=== PATIENT | male | born 1980 | race American Indian/Alaskan Native ===

== ENCOUNTER 2018-03-22 00:34 | Inpatient (IN) | payer OTHER ==
[2018-03-22] MEDS ORDERED: NACL 0.9% 1000 ML 1,000 ML IV ONE (01:19)
[2018-03-22] MEDS ORDERED: ZOFRAN ODT PO ONE (01:29)
[2018-03-22] MEDS ORDERED: ZOFRAN ODT ONE (01:30)
[2018-03-22 02:05] LABS: Basophils % (Auto) 0.3 % (0.0-1.8); Hemoglobin 14.6 gm/dl (11.8-15.2); Lymphocytes # (Auto) 2.1 K/mm3 (1.2-5.4); Mean Corpuscular HGB Conc 34 % (32-34); Mean Corpuscular Hemoglobin 31 pg (28-32); Mean Corpuscular Volume 92 fl (84-94); Monocytes # (Auto) 0.8 K/mm3 (0.0-0.8); Monocytes % (Auto) 5.9 % (0.0-7.3); Platelet Count 240 K/mm3 (140-440); Red Blood Count 4.69 M/mm3 (3.65-5.03); Red Cell Distribution Width 12.9 % (13.2-15.2)
[2018-03-22 02:28] LABS: Alanine Aminotransferase 15 units/L (7-56); Albumin 4.6 g/dL (3.9-5); BUN/Creatinine Ratio 16; Blood Urea Nitrogen 11 mg/dL (9-20); Calcium 9.6 mg/dL (8.4-10.2); Hemolysis Index 5; Lipase 18 units/L (13-60)
[2018-03-22] MEDS ORDERED: PROTONIX IV ONE (07:46)
--- NOTE | 2018-03-22 07:48 | Emergency Department Report ---
ED GI Bleed HPI - General Chief complaint: Abdominal Pain Stated complaint: CP Time Seen by Provider: 03/22/18 07:37 Source: patient, RN notes reviewed Mode of arrival: Ambulatory Limitations: No Limitations - History of Present Illness Initial comments: This is a 38-year-old gentleman who is not known to this provider previously, who does not currently have a primary care doctor, and reports surgical history for appendectomy. He reports a past medical history for pancreatitis. Patient reports that he was in his usual state of health a few days ago, and consumed some fried and fatty foods, and shortly thereafter developed epigastric pain. The pain did not radiate to the back, arms or neck. It was associated by nausea and vomiting. He reports coffee-ground emesis. He thinks that his first episode of emesis was the food that he ate, and then was subsequently coffee-ground emesis. Patient was given medication prior to my arrival, including Zofran, which he indicates improved his symptoms. He denies DVT, pulmonary embolus risk factors. He denies headache, neck pain, shortness of breath, lower abdominal pain, irritative/obstructive urinary symptoms. MD complaint: coffee ground emesis -: Gradual Location: epigastric Radiation: none Severity scale (0 -10): 8 Quality: cramping Consistency: intermittent Improves with: none Worsens with: none Associated Symptoms: abdominal pain, nausea, vomiting. denies: epistaxis, fever /chills, headaches, loss of appetite, malaise, easy bruising, rash, other bleeding, shortness of breath, syncope, weakness - Related Data Allergies Allergy/AdvReac Type Severity Reaction Status Date / Time No Known Allergies Allergy Verified 03/22/18 01:19 ED Review of Systems ROS: Stated complaint: CP Other details as noted in HPI Constitutional: denies: fever Eyes: denies: eye discharge ENT: denies: epistaxis Respiratory: denies: cough Cardiovascular: denies: syncope Gastrointestinal: abdominal pain, nausea, vomiting. denies: melena, hematochezia Genitourinary: denies: dysuria Musculoskeletal: denies: back pain Skin: denies: lesions Neurological: denies: weakness Psychiatric: anxiety ED Past Medical Hx - Past Medical History Previous Medical History?: Yes Additional medical history: pancreatis - Surgical History Hx Appendectomy: Yes Additional Surgical History: tonsil - Social History Smoking Status: Current Every Day Smoker Substance Use Type: Alcohol ED Physical Exam - General Limitations: No Limitations General appearance: alert, in no apparent distress - Head Head exam: Present: atraumatic, normocephalic - Eye Eye exam: Present: normal appearance, EOMI. Absent: nystagmus - ENT ENT exam: Present: normal exam, normal orophraynx, mucous membranes moist, normal external ear exam - Neck Neck exam: Present: normal inspection, full ROM. Absent: tenderness, meningismus - Respiratory Respiratory exam: Present: normal lung sounds bilaterally. Absent: respiratory distress - Cardiovascular Cardiovascular Exam: Present: regular rate, normal rhythm, normal heart sounds. Absent: bradycardia, tachycardia, irregular rhythm, systolic murmur, diastolic murmur, rubs, gallop - GI/Abdominal GI/Abdominal exam: Present: soft. Absent: distended, tenderness, guarding, rebound, rigid, pulsatile mass - Rectal Rectal exam: Present: deferred - Extremities Exam Extremities exam: Present: normal inspection, full ROM, normal capillary refill , other (2+ pulses noted in the bilateral upper, lower extremities. Compartments soft. No long bony tenderness. The pelvis is stable.). Absent: tenderness, pedal edema, joint swelling, calf tenderness - Back Exam Back exam: Present: normal inspection, full ROM. Absent: tenderness, CVA tenderness (R), paraspinal tenderness, vertebral tenderness - Neurological Exam Neurological exam: Present: alert, oriented X3, CN II-XII intact, normal gait, other (Extraocular movements intact. Tongue midline. No facial droop. Facial sensation intact to light touch in the V1, V2, V3 distribution bilaterally. 5 and 5 strength in 4 extremities.. Sensation is intact to light touch in 4 extremities.). Absent: motor sensory deficit - Psychiatric Psychiatric exam: Present: normal affect, normal mood - Skin Skin exam: Present: warm, dry, intact, normal color. Absent: rash ED Course Vital Signs 03/22/18 03/22/18 03/22/18 01:15 04:17 05:41 Temperature 99.5 F 98.2 F Pulse Rate 70 75 Respiratory 22 18 Rate Blood Pressure 163/101 158/100 Blood Pressure [Right] O2 Sat by Pulse 99 98 100 Oximetry 03/22/18 03/22/18 03/22/18 06:00 06:11 06:30 Temperature 98.5 F 99.1 F Pulse Rate 75 69 73 Respiratory 16 17 17 Rate Blood Pressure 149/88 154/102 Blood Pressure 149/88 154/102 [Right] O2 Sat by Pulse 100 98 98 Oximetry ED Medical Decision Making - Lab Data Result diagrams: 03/22/18 01:29 03/22/18 01:29 Vital Signs 03/22/18 03/22/18 03/22/18 01:15 04:17 05:41 Temperature 99.5 F 98.2 F Pulse Rate 70 75 Respiratory 22 18 Rate Blood Pressure 163/101 158/100 Blood Pressure [Right] O2 Sat by Pulse 99 98 100 Oximetry 03/22/18 03/22/18 03/22/18 06:00 06:11 06:30 Temperature 98.5 F 99.1 F Pulse Rate 75 69 73 Respiratory 16 17 17 Rate Blood Pressure 149/88 154/102 Blood Pressure 149/88 154/102 [Right] O2 Sat by Pulse 100 98 98 Oximetry Lab Results 03/22/18 03/22/18 Range/Units 01:29 01:29 WBC 13.4 H (4.5-11.0) K/mm3 RBC 4.69 (3.65-5.03) M/mm3 Hgb 14.6 (11.8-15.2) gm/dl Hct 43.0 (35.5-45.6) % MCV 92 (84-94) fl MCH 31 (28-32) pg MCHC 34 (32-34) % RDW 12.9 L (13.2-15.2) % Plt Count 240 (140-440) K/mm3 Lymph % (Auto) 16.0 (13.4-35.0) % Sanborn % (Auto) 5.9 (0.0-7.3) % Eos % (Auto) 0.0 (0.0-4.3) % Baso % (Auto) 0.3 (0.0-1.8) % Lymph # 2.1 (1.2-5.4) K/mm3 Sanborn # 0.8 (0.0-0.8) K/mm3 Eos # 0.0 (0.0-0.4) K/mm3 Baso # 0.0 (0.0-0.1) K/mm3 Seg Neutrophils % 77.8 H (40.0-70.0) % Seg Neutrophils # 10.4 H (1.8-7.7) K/mm3 Sodium 141 (137-145) mmol/L Potassium 3.4 L (3.6-5.0) mmol/L Chloride 98.9 (98-107) mmol/L Carbon Dioxide 27 (22-30) mmol/L Anion Gap 19 mmol/L BUN 11 (9-20) mg/dL Creatinine 0.7 L (0.8-1.5) mg/dL Estimated GFR > 60 ml/min BUN/Creatinine Ratio 16 % Glucose 147 H (75-100) mg/dL Calcium 9.6 (8.4-10.2) mg/dL Total Bilirubin 0.50 (0.1-1.2) mg/dL AST 15 (5-40) units/L ALT 15 (7-56) units/L Alkaline Phosphatase 72 (35-129) units/L Total Protein 7.7 (6.3-8.2) g/dL Albumin 4.6 (3.9-5) g/dL Albumin/Globulin Ratio 1.5 % Lipase 18 (13-60) units/L - EKG Data -: EKG Interpreted by Me EKG shows normal: sinus rhythm Rate: normal - EKG Data When compared to previous EKG there are: previous EKG unavailable 03/22/18 08:07 Sinus, 75 bpm, normal axis, normal intervals, high left ventricular voltage, motion artifact. Not a STEMI - Radiology Data Radiology results: image reviewed interpreted by me: X-ray of the chest is negative for acute disease - Medical Decision Making Differential diagnosis, including but not limited to: Pancreatitis, Hina- Ziegler tear, upper GI bleed, hiatal hernia, GERD, gastritis Assessment and plan: 38-year-old male with history of pancreatitis who recently consumed alcohol and fatty foods, with epigastric pain and coffee-ground emesis. Patient has a photograph of the emesis and it looks quite copious. He is hemodynamically stable, and denies bright red blood or black tarry stool. X- ray of the chest is unremarkable. Hemoglobin, hematocrit appropriate within normal limits at this time. I suspect a Hina-Ziegler tear. However, given volume of coffee ground emesis noted on photograph, patient will be admitted to the medical service for serial abdominal exams, IV fluids, IV proton pump inhibitor, and gastroenterology consultation. The vocational counselor air export operations agent, Dr. Neri has graciously agreed to consult on the patient. Hospital physician, Dr. Ziegler to admit. Critical care attestation.: If time is entered above; I have spent that time in minutes in the direct care of this critically ill patient, excluding procedure time. ED Disposition Clinical Impression: Coffee ground emesis Disposition: OP ADMIT IP TO THIS HOSP Is pt being admited?: Yes Condition: Good Referrals: PRIMARY CARE, [Primary Care Provider] - 3-5 Days
[2018-03-22] MEDS ORDERED: NACL 0.9% 50 ML ONE (07:55)
[2018-03-22 08:17] LABS: INR 0.99 (0.87-1.13)
--- NOTE | 2018-03-22 08:25 | XRay Report ---
CHEST ONE VIEW INDICATION: Chest pain, nausea, vomiting. COMPARISON: None similar at this institution. FINDINGS: Portable, single, frontal chest radiograph demonstrates normal cardiomediastinal silhouette. Clear lungs. Unremarkable bones. Extrinsic EKG leads. CONCLUSION: No acute disease in the chest. Thank you for the opportunity to participate in this patient's care.
--- NOTE | 2018-03-22 08:51 | Cat Scan Report ---
CT ABDOMEN AND PELVIS WITH CONTRAST INDICATION: Abdominal pain, nausea, vomiting. Patient states history of pancreatitis. COMPARISON: None similar. FINDINGS: Abdomen and pelvis CT performed following intravenous administration of 100 cc of Omnipaque 300. LUNG BASES: Moderate to severe nonspecific distal esophageal wall prominence/thickening, not excluded for gastroesophageal reflux and/or hiatal hernia, amongst others. ABDOMEN: Liver, spleen, gallbladder, pancreas, adrenals, nonaneurysmal abdominal aorta with slight atherosclerotic changes and IVC within normal limits. No ascites or size significant adenopathy. Nonopacified GI tract valuation limited, though grossly nonobstructive. Stomach decompressed with nonspecific exaggerated wall thickness. Multiple ascending colon diverticula incidentally noted. Mild left intrarenal collecting system, renal pelvis and proximal ureteral dilatation noted, though proximal ureter promptly tapers to a normal caliber anterior to the psoas muscle as on axial series 2, images 81-90. A 5 mm left interpolar calculus also noted, axial image 62. Tiny, subcentimeter bilateral renal cortical hypodensities. Otherwise unremarkable kidneys. No hydronephrosis on the right. PELVIS: Opacified right ureter is unremarkable. Left ureter though not opacified and difficult to accurately follow to the bladder base with a tiny 2-3 mm left hemipelvic calcification as on axial series 4, image 53 presumed to represent a phlebolith rather than a distal ureteral stone. Few other pelvic vascular calcifications also noted. Otherwise unremarkable urinary bladder, seminal vesicles, prostate and rectosigmoid. No free fluid or significant adenopathy. Approximately 1.5 cm fat containing right inguinal hernia proximally, axial image 158. Bilateral SI joint degenerative bridging osteophytes. Mild lower thoracic and upper lumbar spine degenerative spurring also seen. CONCLUSION: 1. Extensive distal esophageal thickening as also nonspecific exaggerated gastric wall thickness, as detailed above. Etiologies as esophagitis/gastroesophageal reflux/hiatal hernia and peptic ulcer disease, amongst others, may be correlated for clinically in an appropriate setting. 2. Approximately 5 mm left renal calculus with mild dilatation of the left renal collecting system, as detailed above. No obstructing ureteral calculus though convincingly identified, as described. 3. Few other findings as diverticulosis, as above. I phoned the above results to Dr. Higgins in the ER, 8:40 AM, 03/22/2018. Thank you for the opportunity to participate in this patient's care.
[2018-03-22] MEDS ORDERED: ZOFRAN IV PRN (09:12)
[2018-03-22] MEDS ORDERED: REGLAN IV PRN (09:12)
--- NOTE | 2018-03-22 09:18 | History and Physical Report ---
History of Present Illness Date of examination: 03/22/18 Chief complaint: Stomach pains History of present illness: Patient is 38 yo man with a history of alcoholic pancreatitis, GERD and alcohol abuse who presents to [facility] ED with severe acute onset constant nonradiating epigastric abdominal pains. He was in his usual state of health a few days ago, when he went out drinking alcohol and eating fried, fatty foods. He was drinking beer and mixed alcohol drinks. He lost count of how much alcohol he consumed. Then he started having severe constant nausea and vomiting associated with diffuse chest pains located over entire chest while vomiting. Then the vomitus turned black followed by severe epigastric abdominal pains so he decided to come to the ED this morning. He took a picture of the vomitus on his smartphone, which appear to be coffee ground emesis, more than a tablespoon. We did have a conversation regarding the knowledge of alcohol causing pancreatitis but he is still drinking alcohol. He minimizes his alcohol consumption. 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 PSH: Left kidney open surgery for blockage, tonsillectomy, appendectomy SH: no tobacco smoking, +ETOH abuse, +marijuana use FH: mother with hypertension, cousin of DM complication, unaware of any early CAD ROS: Constitutional: denies: fever ENT: denies: throat or neck pain Respiratory: denies: cough, shortness of breath Cardiovascular: + chest pain while vomiting Endocrine: denies unexplained weight loss or gain Gastrointestinal: + abdominal pain, nausea Genitourinary: denies: dysuria Rectal: denies no incontinence, no bleeding, no itching, no discharge Musculoskeletal: denies swelling, myaglia, muscle weakness Skin: denies: rash Neurological: denies: headache Hematological/Lymphatic: denies: easy bleeding or easy bruising Allergic/Immunologic: no urticaria, no allergic rhinitis, no anaphylaxis Psych: denies sadness or hopelessness, SI/HI Medications and Allergies Allergies Allergy/AdvReac Type Severity Reaction Status Date / Time No Known Allergies Allergy Verified 03/22/18 01:19 Active Meds: Active Medications Hydromorphone HCl (Dilaudid) 1 mg IV Q4H PRN PRN Reason: Pain , Severe (7-10) Potassium Chloride (Kcl 10meq/100ml) 10 meq in 100 mls @ 100 mls/hr IV Q1H KELLEY Stop: 03/22/18 10:59 Ceftriaxone Sodium (Rocephin/Ns 1 Gm/50 Ml) 1 gm in 50 mls @ 100 mls/hr IV Q24HR KELLEY; Protocol Sodium Chloride (Nacl 0.45% 1000 Ml) 1,000 mls @ 100 mls/hr IV DIRECT KELLEY Metoclopramide HCl (Reglan) 10 mg IV Q8H PRN PRN Reason: Nausea And Vomiting Ondansetron HCl (Zofran) 4 mg IV Q4H PRN PRN Reason: N/V unrelieved by Reglan Pantoprazole Sodium (Protonix) 40 mg IV BID KELLEY Exam - Physical Exam Narrative exam: GEN: WDWN, ill appearing with writhing in pain, NAD, Awake, Alert, Orientated x 3 HEENT: NCAT, EOMI, PERRL, OP Clear NECK: supple, no adenopathy, no thyromegaly, no JVD CVS/HEART: RRR, normal S1S2, pulses present bilaterally CHEST/LUNGS: CTA B, Symmetrical chest expansion, good air entry bilaterally GI/Abdomen: soft, nondistended, epigastric abd pains, good bowel sounds, no guarding or rebound /Bladder: no suprapubic tenderness, no CVA or paraspinal tenderness EXT/Skin: no c/c/e, no obvious rash MSK: FROM x 4 Neuro: CN 2-12 grossly intact, no new focal deficits Psych: calm - Constitutional Vitals: Temp Pulse Resp BP Pulse Ox 99.1 F 73 17 154/102 98 03/22/18 06:11 03/22/18 06:30 03/22/18 06:30 03/22/18 06:30 03/22/18 06:30 Results - Labs CBC & Chem 7: 03/22/18 01:29 03/22/18 01:29 Labs: Abnormal lab results 03/22/18 03/22/18 Range/Units 01:29 01:29 WBC 13.4 H (4.5-11.0) K/mm3 RDW 12.9 L (13.2-15.2) % Seg Neutrophils % 77.8 H (40.0-70.0) % Seg Neutrophils # 10.4 H (1.8-7.7) K/mm3 Potassium 3.4 L (3.6-5.0) mmol/L Creatinine 0.7 L (0.8-1.5) mg/dL Glucose 147 H (75-100) mg/dL Assessment and Plan Patient is 38 yo man with a history of alcoholic pancreatitis, GERD and alcohol abuse who presents to [facility] ED with severe acute onset constant nonradiating epigastric abdominal pains. He was in his usual state of health a few days ago, when he went out drinking alcohol and eating fried, fatty foods. He was drinking beer and mixed alcohol drinks. He lost count of how much alcohol he consumed. Then he started having severe constant nausea and vomiting associated with diffuse chest pains located over entire chest while vomiting. Then the vomitus turned black followed by severe epigastric abdominal pains so he decided to come to the ED this morning. He took a picture of the vomitus on his smartphone, which appear to be coffee ground emesis, more than a tablespoon. We did have a conversation regarding his admission that alcohol caused pancreatitis in the past but he is still drinking alcohol. He minimizes his alcohol consumption. * CT abd/pelvis with IV contrast CONCLUSION: 1. Extensive distal esophageal thickening as also nonspecific exaggerated gastric wall thickness, as detailed above. Etiologies as esophagitis/gastroesophageal reflux/hiatal hernia and peptic ulcer disease, amongst others, may be correlated for clinically in an appropriate setting. 2. Approximately 5 mm left renal calculus with mild dilatation of the left renal collecting system, as detailed above. No obstructing ureteral calculus though convincingly identified, as described. 3. Few other findings as diverticulosis, as above. I phoned the above results to Dr. Higgins in the ER, 8:40 AM, 03/22/2018. * pCXR reported as unremarkable * EKG SR 75, early repolarization -SIRS due pancreatitis with wbc 13.4, and RR 22: treat with empiric antibiotics for suspected Hina Ziegler tear, ordered blood culture -Acute UGIB with normal H/H (early GIB) so far: keep NPO, treat with iv protonix , repeat H/H, GI already consulted per ED physician, whom I spoke with -History of alcohol pancreatitis: keep NPO, treat with IVF, IV narcotics, -Accelerated hypertension: treat with iv hydralazine prn -GERD: treat with ppi -Alcohol abuse: counseling and education done, treat with iv thiamine, CIWA protocol -Chest pains, atypical, most likely GERD related: check Troponin, treat with PPI -Left renal Incidential calculus: consulted Urology -DVT prophylaxis: scd only due to GIB bleed CCT 37 minutes
[2018-03-22] MEDS ORDERED: HALDOL IV PRN (09:42)
[2018-03-22] MEDS ORDERED: ATIVAN IV PRN ×3 (09:42)
[2018-03-22] MEDS ORDERED: APRESOLINE IV PRN (09:44)
[2018-03-22] MEDS: PROTONIX IV SCH ×2 (09:47→22:33)
--- NOTE | 2018-03-22 10:17 | Gastroenterology Consultation ---
<BARBARAJERRYBLADE Cehn - Last Filed: 03/22/18 10:48> History of Present Illness - Reason for Consult Consult date: 03/22/18 coffee-ground emesis Requesting physician: SHIV GRIGGS - History of Present Illness Patient is a 38 y/o male with PMH of alcoholic pancreatitis on whom GI has been consulted to evaluate and treat coffee-ground emesis. This morning, patient was resting on stretcher w/o acute distress. He reports drinking a large amount of alcohol and eating fatty foods Tuesday night after work then woke up yesterday morning with epigastric pain and associated N/V. He states his emesis was food colored with the first few episodes of vomiting and then it turned into a black color mixed with a small amount of bright red blood for subsequent episodes. Last episode of vomiting was early this am between 0100 and 0300. States he also had diffuse CP described as a "burning" while vomiting that has since resolved. No melena or hematochezia. Last BM 2 days ago with brown stool per pt. Denies fever, SOB, dizziness, dysphagia, odynophagia, diarrhea, or constipation. No NSAID use. No hx of liver disease, GI bleeding or PUD. No previous EGD. Past History Past Medical History: GERD, hypertension (controlled with diet), other (h/o alcoholic pancreatitis) Past Surgical History: appendectomy, tonsillectomy, Other (kidney surgery) Social history: other (+alcohol and marijuana use). denies: smoking Family history: diabetes, hypertension Medications and Allergies Allergies Allergy/AdvReac Type Severity Reaction Status Date / Time No Known Allergies Allergy Verified 03/22/18 01:19 Active Meds: Active Medications Haloperidol Lactate (Haldol) 5 mg IV Q1H PRN PRN Reason: Unrespon. to mult. doses BZD's Hydralazine HCl (Apresoline) 10 mg IV Q4HR PRN PRN Reason: Blood Pressure Hydromorphone HCl (Dilaudid) 1 mg IV Q4H PRN PRN Reason: Pain , Severe (7-10) Potassium Chloride (Kcl 10meq/100ml) 10 meq in 100 mls @ 100 mls/hr IV Q1H KELLEY Stop: 03/22/18 10:59 Ceftriaxone Sodium (Rocephin/Ns 1 Gm/50 Ml) 1 gm in 50 mls @ 100 mls/hr IV Q24HR KELLEY; Protocol Sodium Chloride (Nacl 0.45% 1000 Ml) 1,000 mls @ 100 mls/hr IV DIRECT KELLEY Thiamine HCl 100 mg/ Sodium (Chloride) 51 mls @ 100 mls/hr IV QDAY KELLEY Lorazepam (Ativan) 2 mg IV Q1H PRN PRN Reason: CIWA-Ar 8-15 Lorazepam (Ativan) 4 mg IV Q1H PRN PRN Reason: CIWA-Ar 16-25 Lorazepam (Ativan) 4 mg IV Q15MIN PRN PRN Reason: CIWA-Ar >25 Metoclopramide HCl (Reglan) 10 mg IV Q8H PRN PRN Reason: Nausea And Vomiting Ondansetron HCl (Zofran) 4 mg IV Q4H PRN PRN Reason: N/V unrelieved by Reglan Pantoprazole Sodium (Protonix) 40 mg IV BID KELLEY Last Admin: 03/22/18 09:47 Dose: Not Given Review of Systems - Review of Systems All systems: negative Gastrointestinal: abdominal pain (epigastric), nausea, vomiting, coffee ground emesis Exam - Constitutional Vital Signs: Temp Pulse Resp BP Pulse Ox 99.1 F 78 11 L 148/95 99 03/22/18 06:11 03/22/18 08:00 03/22/18 08:00 03/22/18 08:00 03/22/18 08:00 General appearance: no acute distress - EENT Eyes: PERRL, EOM intact ENT: hearing intact - Respiratory Respiratory: bilateral: CTA - Cardiovascular Rhythm: regular Heart Sounds: Present: S1 & S2 - Gastrointestinal General gastrointestinal: Present: soft, tender (slight generalized TTP ), non- distended, normal bowel sounds - Neurologic Neurological: alert and oriented x3 - Labs CBC & Chem 7: 03/22/18 01:29 03/22/18 01:29 Lab Results: Laboratory Results - last 24 hr 03/22/18 03/22/18 03/22/18 01:29 01:29 01:29 WBC 13.4 H RBC 4.69 Hgb 14.6 Hct 43.0 MCV 92 MCH 31 MCHC 34 RDW 12.9 L Plt Count 240 Lymph % (Auto) 16.0 [place] % (Auto) 5.9 Eos % (Auto) 0.0 Baso % (Auto) 0.3 Lymph # 2.1 [place] # 0.8 Eos # 0.0 Baso # 0.0 Seg Neutrophils % 77.8 H Seg Neutrophils # 10.4 H PT INR Sodium 141 Potassium 3.4 L Chloride 98.9 Carbon Dioxide 27 Anion Gap 19 BUN 11 Creatinine 0.7 L Estimated GFR > 60 BUN/Creatinine Ratio 16 Glucose 147 H Calcium 9.6 Magnesium 2.00 Total Bilirubin 0.50 AST 15 ALT 15 Alkaline Phosphatase 72 Troponin T Total Protein 7.7 Albumin 4.6 Albumin/Globulin Ratio 1.5 Lipase 18 Blood Type Antibody Screen 03/22/18 03/22/18 03/22/18 07:50 07:57 07:57 WBC RBC Hgb Hct MCV MCH MCHC RDW Plt Count Lymph % (Auto) [place] % (Auto) Eos % (Auto) Baso % (Auto) Lymph # [place] # Eos # Baso # Seg Neutrophils % Seg Neutrophils # PT 13.6 INR 0.99 Sodium Potassium Chloride Carbon Dioxide Anion Gap BUN Creatinine Estimated GFR BUN/Creatinine Ratio Glucose Calcium Magnesium Total Bilirubin AST ALT Alkaline Phosphatase Troponin T < 0.010 Total Protein Albumin Albumin/Globulin Ratio Lipase Blood Type O NEGATIVE Antibody Screen Negative Assessment and Plan 1.UGIB 2.coffee-ground emesis -INR 0.99 -LFTs and lipase WNL -chest x-ray negative -abd CT showed extensive distal esophageal thickening, nonspecific gastric wall thickening, and kidney stone -H/H 14.6/43.0-WNL -continue to monitor H/H and transfuse as needed -hold blood thinning medications -Patient reports multiple episodes of vomiting yesterday with emesis initially being food colored that became black in mixed with scant amount of bright red blood with following episodes -currently HD stable -etiology-most likely 2/2 M-W tear vs other -will schedule for an EGD today for further evaluation -continue PPI and supportive care -will follow 3.alcohol abuse -cessation discussed and encouraged with patient -monitor for withdrawal <DENISE WEINSTEIN - Last Filed: 03/22/18 14:27> Medications and Allergies Active Meds: Active Medications Haloperidol Lactate (Haldol) 5 mg IV Q1H PRN PRN Reason: Unrespon. to mult. doses BZD's Hydralazine HCl (Apresoline) 10 mg IV Q4HR PRN PRN Reason: Blood Pressure Hydromorphone HCl (Dilaudid) 1 mg IV Q4H PRN PRN Reason: Pain , Severe (7-10) Last Admin: 03/22/18 10:35 Dose: 1 mg Ceftriaxone Sodium (Rocephin/Ns 1 Gm/50 Ml) 1 gm in 50 mls @ 100 mls/hr IV Q24HR KELLEY; Protocol Last Admin: 03/22/18 10:45 Dose: 100 mls/hr Sodium Chloride (Nacl 0.45% 1000 Ml) 1,000 mls @ 100 mls/hr IV DIRECT KELLEY Last Admin: 03/22/18 10:28 Dose: 100 mls/hr Thiamine HCl 100 mg/ Sodium (Chloride) 51 mls @ 100 mls/hr IV QDAY KELLEY Sodium Chloride (Nacl 0.9% 1000 Ml) 1,000 mls @ 50 mls/hr IV DIRECT KELLEY Last Admin: 03/22/18 13:25 Dose: 50 mls/hr Lorazepam (Ativan) 2 mg IV Q1H PRN PRN Reason: CIWA-Ar 8-15 Lorazepam (Ativan) 4 mg IV Q1H PRN PRN Reason: CIWA-Ar 16-25 Lorazepam (Ativan) 4 mg IV Q15MIN PRN PRN Reason: CIWA-Ar >25 Metoclopramide HCl (Reglan) 10 mg IV Q8H PRN PRN Reason: Nausea And Vomiting Last Admin: 03/22/18 10:27 Dose: 10 mg Ondansetron HCl (Zofran) 4 mg IV Q4H PRN PRN Reason: N/V unrelieved by Reglan Pantoprazole Sodium (Protonix) 40 mg IV BID [facility] Last Admin: 03/22/18 09:47 Dose: Not Given Exam - Constitutional Vital Signs: Temp Pulse Resp BP Pulse Ox 98.6 F 72 11 L 128/80 99 03/22/18 13:04 03/22/18 13:04 03/22/18 13:04 03/22/18 13:04 03/22/18 13:04 - Labs CBC & Chem 7: 03/22/18 01:29 03/22/18 01:29 Lab Results: Laboratory Results - last 24 hr 03/22/18 03/22/18 03/22/18 01:29 01:29 01:29 WBC 13.4 H RBC 4.69 Hgb 14.6 Hct 43.0 MCV 92 MCH 31 MCHC 34 RDW 12.9 L Plt Count 240 Lymph % (Auto) 16.0 [place] % (Auto) 5.9 Eos % (Auto) 0.0 Baso % (Auto) 0.3 Lymph # 2.1 [place] # 0.8 Eos # 0.0 Baso # 0.0 Seg Neutrophils % 77.8 H Seg Neutrophils # 10.4 H PT INR Sodium 141 Potassium 3.4 L Chloride 98.9 Carbon Dioxide 27 Anion Gap 19 BUN 11 Creatinine 0.7 L Estimated GFR > 60 BUN/Creatinine Ratio 16 Glucose 147 H Calcium 9.6 Magnesium 2.00 Total Bilirubin 0.50 AST 15 ALT 15 Alkaline Phosphatase 72 Troponin T Total Protein 7.7 Albumin 4.6 Albumin/Globulin Ratio 1.5 Lipase 18 Urine Color Urine Turbidity Urine pH Ur Specific [place] Urine Protein Urine Glucose (UA) Urine Ketones Urine Blood Urine Nitrite Urine Bilirubin Urine Urobilinogen Ur Leukocyte Esterase Urine WBC (Auto) Urine RBC (Auto) Urine Mucus Blood Type Antibody Screen 03/22/18 03/22/18 03/22/18 07:50 07:57 07:57 WBC RBC Hgb Hct MCV MCH MCHC RDW Plt Count Lymph % (Auto) [place] % (Auto) Eos % (Auto) Baso % (Auto) Lymph # [place] # Eos # Baso # Seg Neutrophils % Seg Neutrophils # PT 13.6 INR 0.99 Sodium Potassium Chloride Carbon Dioxide Anion Gap BUN Creatinine Estimated GFR BUN/Creatinine Ratio Glucose Calcium Magnesium Total Bilirubin AST ALT Alkaline Phosphatase Troponin T < 0.010 Total Protein Albumin Albumin/Globulin Ratio Lipase Urine Color Urine Turbidity Urine pH Ur Specific [place] Urine Protein Urine Glucose (UA) Urine Ketones Urine Blood Urine Nitrite Urine Bilirubin Urine Urobilinogen Ur Leukocyte Esterase Urine WBC (Auto) Urine RBC (Auto) Urine Mucus Blood Type O NEGATIVE Antibody Screen Negative 03/22/18 03/22/18 10:30 11:56 WBC RBC Hgb Hct MCV MCH MCHC RDW Plt Count Lymph % (Auto) [place] % (Auto) Eos % (Auto) Baso % (Auto) Lymph # [place] # Eos # Baso # Seg Neutrophils % Seg Neutrophils # PT INR Sodium Potassium Chloride Carbon Dioxide Anion Gap BUN Creatinine Estimated GFR BUN/Creatinine Ratio Glucose Calcium Magnesium Total Bilirubin AST ALT Alkaline Phosphatase Troponin T < 0.010 Total Protein Albumin Albumin/Globulin Ratio Lipase Urine Color Yellow Urine Turbidity Clear Urine pH 6.0 Ur Specific [place] > 1.050 H Urine Protein <15 mg/dl Urine Glucose (UA) Neg Urine Ketones 20 Urine Blood Neg Urine Nitrite Neg Urine Bilirubin Neg Urine Urobilinogen 2.0 Ur Leukocyte Esterase Neg Urine WBC (Auto) 2.0 Urine RBC (Auto) 1.0 Urine Mucus Few Blood Type Antibody Screen Assessment and Plan Pt seen and examined. Agree with note above. will plan for EGD today. Further recommendations to follow.
[2018-03-22] MEDS: NACL 0.45% 1000 ML 1,000 ML IV SCH (10:28)
[2018-03-22] MEDS: DILAUDID IV PRN ×3 (10:35→22:33)
[2018-03-22] MEDS: ROCEPHIN/NS 1 GM/50 ML 1 GM/50 ML BAG IV SCH (10:45)
[2018-03-22 11:52] LABS: Bilirubin,Urine NEG (Negative); Blood,Urine NEG (Negative); Color,Urine Yellow (Yellow); Mucus,Urine FEW /HPF; Protein,Urine <15 mg/dL mg/dL (Negative)
[2018-03-22] MEDS: KCL 10MEQ/100ML 10 MEQ/100 ML BAG IV SCH ×2 (12:12→15:23)
--- NOTE | 2018-03-22 13:54 | Anesthesia Day of Surgery ---
Anesthesia Day of Surgery - Day of Surgery Patient Examined: Yes Patient H&P Reviewed: Yes Patient is NPO: Yes
--- NOTE | 2018-03-22 13:55 | Anesthesia Consultation ---
Anesthesia Consult and Med Hx Date of service: 03/22/18 - Airway Anesthetic Teeth Evaluation: Good ROM Head & Neck: Adequate Mental/Hyoid Distance: Adequate Mallampati Class: Class I Intubation Access Assessment: Good - Pulmonary Exam CTA: Yes - Cardiac Exam Cardiac Exam: RRR - Pre-Operative Health Status ASA Pre-Surgery Classification: ASA2 Proposed Anesthetic Plan: MAC (NPO, Hemodynamically stable for procedure)
[2018-03-22] MEDS ORDERED: NACL 0.9% 1000 ML 1,000 ML IV SCH (14:00)
--- NOTE | 2018-03-22 14:36 | Operative Report ---
Operative Report Operative Report: Esophagogastroduodenoscopy Procedure Note Date of procedure: 03/22/2018 Endoscopist: Robert Neri Pre-op diagnosis: UGI bleed Post-op diagnosis: Severe (LA Grade IV esophagitis), small jazmine arline tear, gastritis Anesthesia: MAC Complications: No immediate complications Estimated blood loss: minimal Procedure: After consent was obtained, the patient was placed in the left lateral decubitus position. The fujinon endoscope was inserted into the patient 's mouth under direct vision, and advanced into the 2nd portion of the duodenum without difficulty. The patient tolerated the procedure well. The views of the mucosa were good. Patient's vital signs were monitored continuously throughout the procedure. Findings: There was severe (LA Grade IV) esophagitis in the mid-lower third of the esophagus. There was a small possible jazmine arline tear at the GE junction without high risk bleeding stigmata. There was a moderate sized hiatal hernia. There was severe localized erythematous gastric mucosa in the proximal body of the stomach (likely from multiple retching episodes based on location of erythema). Otherwise, the stomach appeared normal. The duodenum appeared normal. Impression: 1. Severe esophagitis 2. Small jazmine arline tear without high risk bleeding stigmata 3. Localized gastritis , likely from retching episodes. Recommendations: -cont PPI BID (po) dosing -alcohol cessation -avoid NSAID's -repeat EGD in 2-3 months as outpatient to assess for esophagitis healing Will sign off, please call as needed or with questions. Follow-up in GI clinic in 1 month.
--- NOTE | 2018-03-22 14:46 | Progress Note ---
Assessment and Plan dictated no acute gu issues rec f/u as out pt Subjective Date of service: 03/22/18 Principal diagnosis: renal stones Objective - Constitutional Vitals: Vital Signs - 12hr 03/22/18 03/22/18 03/22/18 04:17 05:41 06:00 Temperature 98.2 F 98.5 F Pulse Rate 75 75 Respiratory 18 16 Rate Blood Pressure 158/100 149/88 Blood Pressure 149/88 [Right] O2 Sat by Pulse 98 100 100 Oximetry 03/22/18 03/22/18 03/22/18 06:11 06:30 07:00 Temperature 99.1 F Pulse Rate 69 73 83 Respiratory 17 17 18 Rate Blood Pressure 154/102 139/80 Blood Pressure 154/102 [Right] O2 Sat by Pulse 98 98 99 Oximetry 03/22/18 03/22/18 03/22/18 07:30 08:00 09:30 Temperature Pulse Rate 78 78 62 Respiratory 19 11 L 8 L Rate Blood Pressure 111/79 148/95 148/95 Blood Pressure [Right] O2 Sat by Pulse 98 99 100 Oximetry 03/22/18 03/22/18 03/22/18 09:40 09:50 10:18 Temperature Pulse Rate 75 85 82 Respiratory 14 13 Rate Blood Pressure 148/95 148/95 147/92 Blood Pressure [Right] O2 Sat by Pulse 99 92 100 Oximetry 03/22/18 03/22/18 03/22/18 11:54 12:00 12:58 Temperature 97.8 F 98.4 F 98.6 F Pulse Rate 63 72 72 Respiratory 20 16 11 L Rate Blood Pressure 118/78 128/80 Blood Pressure 142/78 [Right] O2 Sat by Pulse 96 100 99 Oximetry 03/22/18 03/22/18 13:04 14:26 Temperature 98.6 F 98.7 F Pulse Rate 72 83 Respiratory 11 L 14 Rate Blood Pressure 128/80 139/99 Blood Pressure [Right] O2 Sat by Pulse 99 99 Oximetry General appearance: Present: no acute distress - Neck Neck: supple - Respiratory Respiratory effort: normal - Gastrointestinal General gastrointestinal: Present: non-tender Rectal Exam: normal rectal tone - Genitourinary Male genitourinary: normal - Labs CBC & Chem 7: 03/22/18 01:29 03/22/18 01:29 Labs: Abnormal lab results 03/22/18 03/22/1818 Range/Units 01:29 01:29 10:30 WBC 13.4 H (4.5-11.0) K/mm3 RDW 12.9 L (13.2-15.2) % Seg Neutrophils % 77.8 H (40.0-70.0) % Seg Neutrophils # 10.4 H (1.8-7.7) K/mm3 Potassium 3.4 L (3.6-5.0) mmol/L Creatinine 0.7 L (0.8-1.5) mg/dL Glucose 147 H (75-100) mg/dL Ur Specific [place] > 1.050 H (1.003-1.030)
[2018-03-22] MEDS ORDERED: DIPRIVAN 10 MG/ML IV ONE (15:05)
[2018-03-22] MEDS: VITAMIN B-1 100 MG in NACL 0.9% 50 ML IV SCH (15:23)
[2018-03-22 15:44] LABS: Hematocrit 39.6 % (35.5-45.6); Hemoglobin 13.4 gm/dl (11.8-15.2)
--- NOTE | 2018-03-22 19:07 | Consultation ---
HISTORY OF PRESENT ILLNESS: The patient is a gentleman, who presented with renal stones, history of alcohol use, esophageal thickening, 5 mm left nonobstructed stone, mild dilatation. He now presents for urological consultation. PAST MEDICAL HISTORY: Alcoholism, pancreatitis, sounds like he had a left UPJ repair. FAMILY HISTORY: Noncontributory. PAST MEDICAL HISTORY: Hypertension, alcoholism, pancreatitis. REVIEW OF SYSTEMS: No significant flank pain, no gross hematuria, gets erections. PHYSICAL EXAMINATION: GENERAL: He is awake, alert. He is in no distress. He just had an endoscopy. ABDOMEN: Soft, nondistended. GENITALIA: Testes descended bilaterally. There is a small weakness in the right area of the inguinal canal. No tenderness. Digital rectal exam smooth, tender, non-nodular. IMPRESSION: Likely chronic dilatation, left renal collecting system. No acute obstruction. We will get a nuclear renal scan to be sure that it drains well and nonobstructing left renal stone followed up as outpatient. JOB# [id number] BRENDA/DAGOBERTO
[2018-03-23 05:48] LABS: Hematocrit 37.7 % (35.5-45.6); Hemoglobin 13.1 gm/dl (11.8-15.2); Mean Corpuscular HGB Conc 35 % (32-34); Mean Corpuscular Hemoglobin 32 pg (28-32); Mean Corpuscular Volume 91 fl (84-94); Platelet Count 210 K/mm3 (140-440); Red Blood Count 4.15 M/mm3 (3.65-5.03); Red Cell Distribution Width 12.7 % (13.2-15.2)
[2018-03-23 06:20] LABS: Alanine Aminotransferase 15 units/L (7-56); BUN/Creatinine Ratio 11; Blood Urea Nitrogen 8 mg/dL (9-20); Calcium 8.9 mg/dL (8.4-10.2); Hemolysis Index 54
[2018-03-23] MEDS: NACL 0.45% 1000 ML 1,000 ML IV SCH (08:13)
[2018-03-23] MEDS ORDERED: LASIX ONE (11:12)
[2018-03-23] MEDS ORDERED: LASIX IV ONE (11:30)
[2018-03-23] MEDS: VITAMIN B-1 100 MG in NACL 0.9% 50 ML IV SCH (13:47)
[2018-03-23] MEDS: PROTONIX IV SCH (13:52)
--- NOTE | 2018-03-23 14:27 | Progress Note ---
Assessment and Plan Assessment and plan: Patient is 38 yo man with a history of alcoholic pancreatitis, GERD and alcohol abuse who presents to [facility] ED with severe acute onset constant nonradiating epigastric abdominal pains. * CT abd/pelvis with IV contrast CONCLUSION: 1. Extensive distal esophageal thickening as also nonspecific exaggerated gastric wall thickness, as detailed above. Etiologies as esophagitis/gastroesophageal reflux/hiatal hernia and peptic ulcer disease, amongst others, may be correlated for clinically in an appropriate setting. 2. Approximately 5 mm left renal calculus with mild dilatation of the left renal collecting system, as detailed above. No obstructing ureteral calculus though convincingly identified, as described. 3. Few other findings as diverticulosis, as above. I phoned the above results to Dr. Higgins in the ER, 8:40 AM, 03/22/2018. * pCXR reported as unremarkable * EKG SR 75, early repolarization -SIRS due pancreatitis with wbc 13.4, and RR 22: treat with empiric antibiotics for suspected Jazmine Ziegler tear, ordered blood culture -Acute UGIB with normal H/H (early GIB) so far: keep NPO, treat with iv protonix , repeat H/H, GI already consulted per ED physician, whom I spoke with -History of alcohol pancreatitis: keep NPO, treat with IVF, IV narcotics, -Accelerated hypertension: treat with iv hydralazine prn -GERD: treat with ppi -Alcohol abuse: counseling and education done, treat with iv thiamine, CIWA protocol -Chest pains, atypical, most likely GERD related: check Troponin, treat with PPI -Left renal Incidential calculus: consulted Urology -DVT prophylaxis: scd only due to GIB bleed EGD 03/22/18 Impression: 1. Severe esophagitis 2. Small jazmine arline tear without high risk bleeding stigmata 3. Localized gastritis , likely from retching episodes. Recommendations: -cont PPI BID (po) dosing -alcohol cessation -avoid NSAID's -repeat EGD in 2-3 months as outpatient to assess for esophagitis healing Will sign off, please call as needed or with questions. Follow-up in GI clinic in 1 month. NM renal scan with lasix per Urology is pending. History Interval history: Patient was seen and examined. Follow-up on current diagnosis of abd pains. Overnight uneventful. Patient denies any chest pain, shortness breath, nausea/ vomiting or severe headaches. Imaging, nursing note, chart, labs and old chart reviewed. Discussed with patient. Hospitalist Physical - Physical exam Narrative exam: GEN: WDWN, NAD, Awake, Alert, Orientated x 3 HEENT: NCAT, EOMI, PERRL, OP Clear NECK: supple, no adenopathy, no thyromegaly, no JVD CVS/HEART: RRR, normal S1S2, pulses present bilaterally CHEST/LUNGS: CTA B, Symmetrical chest expansion, good air entry bilaterally GI/Abdomen: soft, nondistended, epigastric abd pains, good bowel sounds, no guarding or rebound /Bladder: no suprapubic tenderness, no CVA or paraspinal tenderness EXT/Skin: no c/c/e, no obvious rash MSK: FROM x 4 Neuro: CN 2-12 grossly intact, no new focal deficits Psych: calm - Constitutional Vitals: Temp Pulse Resp BP Pulse Ox 98.1 F 57 L 22 142/91 99 03/23/18 12:01 03/23/18 05:38 03/23/18 12:01 03/23/18 12:01 03/23/18 05:38 General appearance: Present: no acute distress Results - Labs CBC & Chem 7: 03/23/18 04:59 03/23/18 04:59 Labs: Laboratory Last Values WBC 9.2 K/mm3 (4.5-11.0) 03/23/18 04:59 RBC 4.15 M/mm3 (3.65-5.03) 03/23/18 04:59 Hgb 13.1 gm/dl (11.8-15.2) 03/23/18 04:59 Hct 37.7 % (35.5-45.6) 03/23/18 04:59 MCV 91 fl (84-94) 03/23/18 04:59 MCH 32 pg (28-32) 03/23/18 04:59 MCHC 35 % (32-34) H 03/23/18 04:59 RDW 12.7 % (13.2-15.2) L 03/23/18 04:59 Plt Count 210 K/mm3 (140-440) 03/23/18 04:59 Lymph % (Auto) 16.0 % (13.4-35.0) 03/22/18 01:29 [place] % (Auto) 5.9 % (0.0-7.3) 03/22/18 01:29 Eos % (Auto) 0.0 % (0.0-4.3) 03/22/18 01:29 Baso % (Auto) 0.3 % (0.0-1.8) 03/22/18 01: Lymph # 2.1 K/mm3 (1.2-5.4) 03/22/18 01:29 [place] # 0.8 K/mm3 (0.0-0.8) 03/22/18 01:29 Eos # 0.0 K/mm3 (0.0-0.4) 03/22/18 01: Baso # 0.0 K/mm3 (0.0-0.1) 03/22/18 01:29 Seg Neutrophils % 77.8 % (40.0-70.0) H 03/22/18 01: Seg Neutrophils # 10.4 K/mm3 (1.8-7.7) H 03/22/18 01:29 PT 13.6 Sec. (12.2-14.9) 03/22/18 07:57 INR 0.99 (0.87-1.13) 03/22/18 07:57 Sodium 141 mmol/L (137-145) 03/23/18 04:59 Potassium 3.9 mmol/L (3.6-5.0) 03/23/18 04:59 Chloride 101.5 mmol/L (98-107) 03/23/18 04:59 Carbon Dioxide 29 mmol/L (22-30) 03/23/18 04:59 Anion Gap 14 mmol/L 03/23/18 04:59 BUN 8 mg/dL (9-20) L 03/23/18 04:59 Creatinine 0.7 mg/dL (0.8-1.5) L 03/23/18 04:59 Estimated GFR > 60 ml/min 03/23/18 04:59 BUN/Creatinine Ratio 11 % 03/23/18 04:59 Glucose 97 mg/dL (75-100) 03/23/18 04:59 Calcium 8.9 mg/dL (8.4-10.2) 03/23/18 04:59 Magnesium 2.00 mg/dL (1.7-2.3) 03/22/18 01:29 Total Bilirubin 0.70 mg/dL (0.1-1.2) 03/23/18 04:59 AST 17 units/L (5-40) 03/23/18 04:59 ALT 15 units/L (7-56) 03/23/18 04:59 Alkaline Phosphatase 61 units/L (35-129) 03/23/18 04:59 Troponin T < 0.010 ng/mL (0.00-0.029) 03/22/18 17:47 Total Protein 6.4 g/dL (6.3-8.2) 03/23/18 04:59 Albumin 4.0 g/dL (3.9-5) 03/23/18 04:59 Albumin/Globulin Ratio 1.7 % 03/23/18 04:59 Lipase 18 units/L (13-60) 03/22/18 01:29 Urine Color Yellow (Yellow) 03/22/18 10:30 Urine Turbidity Clear (Clear) 03/22/18 10:30 Urine pH 6.0 (5.0-7.0) 03/22/18 10:30 Ur Specific [place] > 1.050 (1.003-1.030) H 03/22/18 10:30 Urine Protein <15 mg/dl mg/dL (Negative) 03/22/18 10:30 Urine Glucose (UA) Neg mg/dL (Negative) 03/22/18 10:30 Urine Ketones 20 mg/dL (Negative) 03/22/18 10:30 Urine Blood Neg (Negative) 03/22/18 10:30 Urine Nitrite Neg (Negative) 03/22/18 10:30 Urine Bilirubin Neg (Negative) 03/22/18 10:30 Urine Urobilinogen 2.0 mg/dL (<2.0) 03/22/18 10:30 Ur Leukocyte Esterase Neg (Negative) 03/22/18 10:30 Urine WBC (Auto) 2.0 /HPF (0.0-6.0) 03/22/18 10:30 Urine RBC (Auto) 1.0 /HPF (0.0-6.0) 03/22/18 10:30 Urine Mucus Few /HPF 03/22/18 10:30 Blood Type O NEGATIVE 03/22/18 07:57 Antibody Screen Negative 03/22/18 07:57
--- NOTE | 2018-03-23 15:13 | Discharge Summary ---
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 * CT abd/pelvis with IV contrast CONCLUSION: 1. Extensive distal esophageal thickening as also nonspecific exaggerated gastric wall thickness, as detailed above. Etiologies as esophagitis/gastroesophageal reflux/hiatal hernia and peptic ulcer disease, amongst others, may be correlated for clinically in an appropriate setting. 2. Approximately 5 mm left renal calculus with mild dilatation of the left renal collecting system, as detailed above. No obstructing ureteral calculus though convincingly identified, as described. 3. Few other findings as diverticulosis, as above. I phoned the above results to Dr. Higgins in the ER, 8:40 AM, 03/22/2018. * pCXR reported as unremarkable * EKG SR 75, early repolarization -SIRS noninfectious, due pancreatitis with wbc 13.4, and RR 22: treat empiric antibiotics for suspected Hina Ziegler tear which was confirmed on EGD, -Acute UGIB with normal H/H (early GIB) so far, due to Severe esophagitis, Small hina arline tear without high risk bleeding stigmata and Localized gastritis, likely from retching episodes. -History of alcohol pancreatitis -Accelerated hypertension: treat with iv hydralazine prn -GERD: treat with ppi -Alcohol abuse: counseling and education done, treat with iv thiamine, CIWA protocol -Chest pains, atypical, most likely GERD related: check Troponin, treat with PPI -Left renal Incidential calculus: consulted Urology -DVT prophylaxis: scd only due to GIB bleed EGD 03/22/18 Impression: 1. Severe esophagitis 2. Small hina arline tear without high risk bleeding stigmata 3. Localized gastritis , likely from retching episodes. Recommendations: -cont PPI BID (po) dosing -alcohol cessation -avoid NSAID's -repeat EGD in 2-3 months as outpatient to assess for esophagitis healing Will sign off, please call as needed or with questions. Follow-up in GI clinic in 1 month. NM renal scan with lasix per Urology is pending, due at follow up, ok to d/c from Urology per Dr. Hauser Disposition: DC-01 TO HOME OR SELFCARE Time spent for discharge: 34 minutes Core Measure Documentation - Palliative Care Palliative Care/ Comfort Measures: Not Applicable - Core Measures Any of the following diagnoses?: none - VTE Discharge Requirements Deep Vein Thrombosis/Pulmonary Embolism Present on Admission: No Has pt received <5 days of overlap therapy or INR<2.0: No Anticoagulant overlap therapy prescribed at discharge: No Contraindication No Overlap Therapy order at DC: Not Indicated Exam - Physical Exam Narrative exam: GEN: WDWN, NAD, Awake, Alert, Orientated x 3 HEENT: NCAT, EOMI, PERRL, OP Clear NECK: supple, no adenopathy, no thyromegaly, no JVD CVS/HEART: RRR, normal S1S2, pulses present bilaterally CHEST/LUNGS: CTA B, Symmetrical chest expansion, good air entry bilaterally GI/Abdomen: soft, nondistended, epigastric abd pains, good bowel sounds, no guarding or rebound /Bladder: no suprapubic tenderness, no CVA or paraspinal tenderness EXT/Skin: no c/c/e, no obvious rash MSK: FROM x 4 Neuro: CN 2-12 grossly intact, no new focal deficits Psych: calm - Constitutional Vitals: Temp Pulse Resp BP Pulse Ox 98.1 F 57 L 22 142/91 99 03/23/18 12:01 03/23/18 05:38 03/23/18 12:01 03/23/18 12:01 03/23/18 05:38 Plan Activity: other (no strenous activity until cleared by pcp) Diet: clear liquids (x 2-3 days then advance to soft x 2 days then advance as tolerates. no spicy, fried, greasy or fatty foods. ) Follow up with: MARTHA COOLEY MD [Staff Physician] - 7 Days LYDIA HAUSER MD [Staff Physician] - 7 Days AMALIA MEYER [Staff Physician] - 7 Days Prescriptions: Acetaminophen [Tylenol] 325 mg PO Q4H PRN #15 capsule PRN Reason: Pain, Moderate (4-6) Amoxicillin/Potassium Clav [Augmentin 875-125 Tablet] 1 each PO BID #14 tablet Pantoprazole [Protonix TAB] 40 mg PO BID #60 tablet Thiamine [Vitamin B-1] 100 mg PO QDAY #30 tablet
--- NOTE | 2018-03-23 16:00 | Progress Note ---
Assessment and Plan dilated pelvis on renal scan washed out f/u as out pt Subjective Date of service: 03/23/18 Principal diagnosis: renal stones Objective - Constitutional Vitals: Vital Signs - 12hr 03/23/18 03/23/18 05:38 12:01 Temperature 98.7 F 98.1 F Pulse Rate 57 L Respiratory 12 22 Rate Blood Pressure 132/78 142/91 O2 Sat by Pulse 99 Oximetry - Labs CBC & Chem 7: 03/23/18 04:59 03/23/18 04:59 Labs: Abnormal lab results 03/23/18 03/23/18 Range/Units 04:59 04:59 MCHC 35 H (32-34) % RDW 12.7 L (13.2-15.2) % BUN 8 L (9-20) mg/dL Creatinine 0.7 L (0.8-1.5) mg/dL
[2018-03-23] MEDS: ROCEPHIN/NS 1 GM/50 ML 1 GM/50 ML BAG IV SCH (16:31)
[2018-03-23 18:40] VITALS: BP 140/90
--- NOTE | 2018-03-24 07:52 | Nuclear Medicine Report ---
NUCLEAR MEDICINE RENAL SCAN CAPTOPRIL/LASIX HISTORY: Left hydronephrosis. TECHNIQUE: Posterior flow and function images were obtained following 5 mCi of technetium 99m MAG3. 20 mg of IV Lasix was administered at 20 minutes. Renogram curves were constructed. COMPARISON: CT abdomen pelvis with contrast dated 03/22/18. The CT does suggest mild pyelocaliectasis within the left kidney with transition point near the ureteropelvic junction. No discrete obstructing stone is visualized. FINDINGS: The posterior flow images demonstrate relatively symmetric perfusion to the kidneys. The posterior function images demonstrate asymmetric activity with mild retention of the radiotracer in the left renal collecting system. Time to peak activity on the right side measures 2 minutes. Time to peak activity on the left side measures 12 minutes. There is a brisk response following the administration of IV Lasix. There is prompt clearance of the radiotracer throughout both collecting systems. Split function measures 47% left kidney and 53% right kidney. IMPRESSION: There is mild pyelocaliectasis in the left kidney. CT suggests a mild stenosis near the left ureteral pelvic junction. Nuclear medicine scan demonstrates prompt clearance of the radiotracer following IV Lasix consistent with no mechanical obstruction.
[2018-03-24] MEDS ORDERED: PROTONIX PO SCH (10:00)
[2018-03-25] MEDS ORDERED: VITAMIN B-1 PO SCH (10:00)
== END 2018-03-23 18:52 | disposition home or self-care (01) | DRG 368 ==
LOC: ED 00:34 → 3A 08:09
PROVIDERS: ADMIT Internal Medicine; ATTEND Internal Medicine
PROC: 0DJ08ZZ Inspection of Upper Intestinal Tract, Via Natural or Artificial Opening Endoscopic (ICD-10-PCS; principal; 2018-03-22)
DX: K22.6 Gastro-esophageal laceration-hemorrhage syndrome (principal); K85.90 Acute pancreatitis without necrosis or infection, unspecified; R65.10 Systemic inflammatory response syndrome (SIRS) of non-infectious origin without acute organ dysfunction; K29.71 Gastritis, unspecified, with bleeding; Z90.49 Acquired absence of other specified parts of digestive tract; F17.200 Nicotine dependence, unspecified, uncomplicated; Z82.49 Family history of ischemic heart disease and other diseases of the circulatory system; Z83.3 Family history of diabetes mellitus; F10.10 Alcohol abuse, uncomplicated; Y90.9 Presence of alcohol in blood, level not specified; I10 Essential (primary) hypertension; N20.0 Calculus of kidney; K21.0 Gastro-esophageal reflux disease with esophagitis
CPT/HCPCS: 36415; 71045; 74177; 78708; 80053; 81001; 83690; 83735; 84484; 85014; 85018; 85025; 85027; 85610; 86850; 86900; 86901; 87040; 87086; 93005; 93010; 96361; 96374; A9562; C9113; J0696; J1170; J1940; J2704; J2765; J3411; J3480; J7030; Q0162; Q9967

== ENCOUNTER 2019-05-26 13:39 | Emergency (ER) | payer SELFPAY ==
[2019-05-26] MEDS ORDERED: ONDANSETRON 4 MG ODT TAB PO/SL ONE (14:39)
--- NOTE | 2019-05-26 14:39 | Event Note ---
ED Screening Note Date of service: 05/26/19 Time: 14:37 ED Screening Note: 39 y o male presents with n/v with abd pain x this am had food and drinks last night at a club hx of pancreatis This initial assessment/diagnostic orders/clinical plan/treatment(s) is/are subject to change based on patients health status, clinical progression and re- assessment by fellow clinical providers in the ED. Further treatment and workup at subsequent clinical providers discretion. Patient/guardian urged not to elope from the ED as their condition may be serious if not clinically assessed and managed. Initial orders include: labs
[2019-05-26] MEDS ORDERED: ONDANSETRON 4 MG ODT TAB ONE (14:43)
[2019-05-26 15:20] LABS: Basophils % (Auto) 0.3 % (0.0-1.8); Hematocrit 43.8 % (35.5-45.6); Hemoglobin 14.6 gm/dl (11.8-15.2); Lymphocytes # (Auto) 1.2 K/mm3 (1.2-5.4); Lymphocytes % (Auto) 8.3 % (13.4-35.0); Mean Corpuscular HGB Conc 33 % (32-34); Mean Corpuscular Volume 93 fl (84-94); Monocytes # (Auto) 0.4 K/mm3 (0.0-0.8); Monocytes % (Auto) 3.2 % (0.0-7.3); Platelet Count 237 K/mm3 (140-440); Red Cell Distribution Width 13.1 % (13.2-15.2)
--- NOTE | 2019-05-26 15:34 | Cat Scan Report ---
CT abdomen pelvis wo con INDICATION: Abdominal Pain. TECHNIQUE: All CT scans at this location are performed using the following dose modulation technique: Automated exposure control. Helical slices were obtained through the abdomen and pelvis. No contrast is adminis tered. COMPARISON: CT scan dated 03/22/2018 FINDINGS: Abdomen: Lung bases are clear. Liver, spleen, pancreas, adrenal glands, and right kidney are unremark able. There is calyceal stone in the mid left kidney. There is no hydronephrosis. There are no ureter al calculi The aorta is normal in diameter. There is no obstruction, inflammation, or free air. There are scattered diverticula throughout the colon. Pelvis: There are phleboliths. There is no inflammatory change. There are no abnormal fluid collectio ns. The appendix is not seen. On review of bone windows, no acute osseous abnormalities are seen. IMPRESSION: There is nephrolithiasis on the left. There is no hydronephrosis. There are no ureteral calculi. There is no obstruction, inflammation, or free air. There are no abnormal fluid collections. There are scattered diverticula in the colon. There is no CT evidence of diverticulitis Signer Name: Demar Maldonado MD Signed: 05/26/2019 3:30 PM Workstation Name: [id number]
[2019-05-26 15:45] LABS: Alanine Aminotransferase 26 units/L (7-56); Albumin 4.6 g/dL (3.9-5); BUN/Creatinine Ratio 13; Blood Urea Nitrogen 10 mg/dL (9-20); Calcium 9.4 mg/dL (8.4-10.2); Hemolysis Index 10
[2019-05-26] MEDS ORDERED: SODIUM CHLORIDE 0.9% 1000 ML 1,000 ML IV ONE (16:43)
[2019-05-26] MEDS ORDERED: MORPHINE 2 MG/1 ML INJ IV ONE (16:43)
--- NOTE | 2019-05-26 16:52 | Emergency Department Report ---
ED Abdominal Pain HPI - General Chief Complaint: Abdominal Pain Stated Complaint: ABD PAIN Time Seen by Provider: 05/26/19 16:36 Source: patient Mode of arrival: Ambulatory Limitations: No Limitations - History of Present Illness Initial Comments: 39-year-old male with history of pancreatitis presents to ED with epigastric abdominal pain since this morning. Patient reports he was out drinking last night, reports onset of abdominal pain this morning. Patient states the pain feels the same as his previous episodes of pancreatitis. Patient has associated nausea and vomiting. Denies fever. MD Complaint: abdominal pain -: This morning Location: epigastric Radiation: back Migration to: no migration Severity: moderate Severity scale (0 -10): 10 Quality: sharp Consistency: constant Improves With: nothing Worsens With: nothing Context: other (recent alcohol use) Associated Symptoms: nausea, vomiting. denies: fever - Related Data Previous Rx's Medication Instructions Recorded Last Taken Type Acetaminophen [Tylenol] 325 mg PO Q4H PRN #15 capsule 03/23/18 Unknown Rx Amoxicillin/Potassium Clav 1 each PO BID #14 tablet 03/23/18 Unknown Rx [Augmentin 875-125 Tablet] Pantoprazole [Protonix TAB] 40 mg PO BID #60 tablet 03/23/18 Unknown Rx Thiamine [Vitamin B-1] 100 mg PO QDAY #30 tablet 03/23/18 Unknown Rx Dicyclomine [Bentyl] 20 mg PO QID PRN #20 tablet 05/26/19 Unknown Rx Ondansetron [Zofran Odt] 4 mg PO Q8HR PRN #20 tab.rapdis 05/26/19 Unknown Rx Promethazine [Phenergan TAB] 25 mg PO Q6HR PRN #20 tab 05/26/19 Unknown Rx traMADoL [Ultram] 50 mg PO Q6HR PRN #7 tablet 05/26/19 Unknown Rx Allergies Allergy/AdvReac Type Severity Reaction Status Date / Time No Known Allergies Allergy Verified 03/22/18 01:19 ED Review of Systems ROS: Stated complaint: ABD PAIN Other details as noted in HPI Comment: All other systems reviewed and negative Constitutional: denies: chills, fever Cardiovascular: denies: chest pain Gastrointestinal: abdominal pain, nausea, vomiting. denies: diarrhea ED Past Medical Hx - Past Medical History Previous Medical History?: Yes Hx Kidney Stones: Yes Additional medical history: pancreatis, kidney blockage - Surgical History Past Surgical History?: Yes Hx Appendectomy: Yes Additional Surgical History: tonsil - Social History Smoking Status: Current Every Day Smoker Substance Use Type: Alcohol - Medications Home Medications: Home Medications Medication Instructions Recorded Confirmed Last Taken Type Acetaminophen [Tylenol] 325 mg PO Q4H PRN #15 capsule 03/23/18 Unknown Rx Amoxicillin/Potassium Clav 1 each PO BID #14 tablet 03/23/18 Unknown Rx [Augmentin 875-125 Tablet] Pantoprazole [Protonix TAB] 40 mg PO BID #60 tablet 03/23/18 Unknown Rx Thiamine [Vitamin B-1] 100 mg PO QDAY #30 tablet 03/23/18 Unknown Rx Dicyclomine [Bentyl] 20 mg PO QID PRN #20 tablet 05/26/19 Unknown Rx Ondansetron [Zofran Odt] 4 mg PO Q8HR PRN #20 tab.rapdis 05/26/19 Unknown Rx Promethazine [Phenergan TAB] 25 mg PO Q6HR PRN #20 tab 05/26/19 Unknown Rx traMADoL [Ultram] 50 mg PO Q6HR PRN #7 tablet 05/26/19 Unknown Rx ED Physical Exam - General Limitations: No Limitations General appearance: alert, in no apparent distress - Head Head exam: Present: atraumatic, normocephalic - Eye Eye exam: Present: normal appearance - ENT ENT exam: Present: mucous membranes moist - Neck Neck exam: Present: normal inspection - Respiratory Respiratory exam: Present: normal lung sounds bilaterally. Absent: respiratory distress - Cardiovascular Cardiovascular Exam: Present: regular rate, normal rhythm - GI/Abdominal GI/Abdominal exam: Present: soft, tenderness (moderate epigastric tenderness). Absent: distended, guarding, rebound - Extremities Exam Extremities exam: Present: normal inspection - Neurological Exam Neurological exam: Present: alert, oriented X3 - Psychiatric Psychiatric exam: Present: normal affect, normal mood - Skin Skin exam: Present: warm, dry, intact, normal color ED Course Vital Signs 05/26/19 05/26/19 13:55 16:39 Temperature 97.4 F L Pulse Rate 76 76 Respiratory 18 17 Rate Blood Pressure 165/109 Blood Pressure 162/115 [Left] O2 Sat by Pulse 100 98 Oximetry ED Medical Decision Making - Lab Data Result diagrams: 05/26/19 15:07 05/26/19 15:07 - Radiology Data Radiology results: report reviewed, image reviewed - Medical Decision Making 39 yo M w/ acute on chronic pancreatitis. Labs show slight elevation in WBCs. Lipase level of 8. CT Abd/Pelvis is unremarkable. BP initially elevated, however, pt has received pain meds and nausea meds and is currently feeling much better. BP improved. Will discharge at this time. Pt advised to stop dri nking alcohol. Outpatient follow up advised. Return precautions given. - Differential Diagnosis pancreatitis, bowel obstruction, gastritis Critical care attestation.: If time is entered above; I have spent that time in minutes in the direct care of this critically ill patient, excluding procedure time. ED Disposition Clinical Impression: Acute on chronic pancreatitis Disposition: TO HOME OR SELFCARE Is pt being admited?: No Condition: Stable Instructions: Pancreatitis (ED) Prescriptions: Dicyclomine [Bentyl] 20 mg PO QID PRN #20 tablet PRN Reason: abdominal pain Promethazine [Phenergan TAB] 25 mg PO Q6HR PRN #20 tab PRN Reason: Nausea traMADoL [Ultram] 50 mg PO Q6HR PRN #7 tablet PRN Reason: Pain Ondansetron [Zofran Odt] 4 mg PO Q8HR PRN #20 tab.rapdis PRN Reason: Vomiting Referrals: [facility] [Provider Group] - 3-5 Days PRIMARY CARE, [Primary Care Provider] - 3-5 Days Time of Disposition: 20:46
[2019-05-26] MEDS ORDERED: ONDANSETRON 4 MG/2 ML INJ IV ONE (19:30)
[2019-05-26] MEDS ORDERED: ONDANSETRON 4 MG/2 ML INJ ONE (19:32)
[2019-05-26 22:52] VITALS: BP 134/61
== END 2019-05-26 20:57 | disposition home or self-care (01) ==
LOC: ED 13:39
DX: K85.90 Acute pancreatitis without necrosis or infection, unspecified (principal); K86.1 Other chronic pancreatitis; F17.200 Nicotine dependence, unspecified, uncomplicated
CPT/HCPCS: 36415; 74176; 80053; 82150; 83690; 85025; 96361; 96374; 96375; 99284; J2270; J2405; J7030; Q0162

== ENCOUNTER 2021-06-16 13:37 | Emergency (ER) | payer SELFPAY ==
[2021-06-16] MEDS ORDERED: PANTOPRAZOLE 40 MG INJ IV ONE (14:54)
[2021-06-16] MEDS ORDERED: MORPHINE 4 MG/1 ML INJ IV ONE (14:54)
[2021-06-16] MEDS ORDERED: ONDANSETRON 4 MG/2 ML INJ IV ONE (14:54)
[2021-06-16] MEDS: SODIUM CHLORIDE 0.9% 1000 ML 1,000 ML IV ONE ×2 (15:27→18:03)
[2021-06-16 15:43] LABS: Basophils % (Auto) 0.3 % (0.0-1.8); Hematocrit 43.9 % (35.5-45.6); Hemoglobin 14.3 gm/dl (11.8-15.2); Lymphocytes # (Auto) 1.3 K/mm3 (1.2-5.4); Lymphocytes % (Auto) 10.1 % (13.4-35.0); Mean Corpuscular HGB Conc 33 % (32-34); Mean Corpuscular Volume 92 fl (84-94); Monocytes # (Auto) 0.5 K/mm3 (0.0-0.8); Monocytes % (Auto) 4.2 % (0.0-7.3); Platelet Count 252 K/mm3 (140-440); Red Blood Count 4.79 M/mm3 (3.65-5.03); Red Cell Distribution Width 13.1 % (13.2-15.2)
--- NOTE | 2021-06-16 15:58 | Emergency Department Report ---
ED Abdominal Pain HPI - General Chief Complaint: Abdominal Pain Stated Complaint: Abdominal Pain Time Seen by Provider: 06/16/21 14:49 Source: patient Mode of arrival: Wheelchair Limitations: No Limitations - History of Present Illness Initial Comments: Patient is a 41-year-old male presents emergency room with complaints of epigastric and left flank pain that began this morning when he woke up. He has associated nausea and vomiting and unable to tolerate p.o. intake. Patient states he has a past medical history of pancreatitis and nephrolithiasis. He states that yesterday he went to a [place] and did drink alcohol. He denies any diarrhea, fever, hematochezia, melena, hematemesis, urinary symptoms. Patient had EGD performed at this hospital with severe esophagitis and gastritis. He never followed back up with GI. No allergies to medications. Severity scale (0 -10): 10 - Related Data Previous Rx's Medication Instructions Recorded Last Taken Type Acetaminophen [Tylenol] 325 mg PO Q4H PRN #15 capsule 03/23/18 Unknown Rx Amoxicillin/Potassium Clav 1 each PO BID #14 tablet 03/23/18 Unknown Rx [Augmentin 875-125 Tablet] Thiamine [Vitamin B-1] 100 mg PO QDAY #30 tablet 03/23/18 Unknown Rx Promethazine [Phenergan TAB] 25 mg PO Q6HR PRN #20 tab 05/26/19 Unknown Rx Dicyclomine [Bentyl] 20 mg PO QID PRN #20 tablet 06/16/21 Unknown Rx Ondansetron [Zofran ODT TAB] 4 mg PO Q8HR PRN #20 tab.rapdis 06/16/21 Unknown Rx Pantoprazole [Protonix TAB] 40 mg PO BID #60 tablet 06/16/21 Unknown Rx traMADoL [Ultram 50 MG tab] 50 mg PO Q6HR PRN #10 tablet 06/16/21 Unknown Rx Allergies Allergy/AdvReac Type Severity Reaction Status Date / Time No Known Allergies Allergy Verified 06/16/21 14:56 ED Review of Systems ROS: Stated complaint: Abdominal Pain Other details as noted in HPI Comment: All other systems reviewed and negative ED Past Medical Hx - Past Medical History Hx Kidney Stones: Yes Additional medical history: pancreatis, kidney blockage - Surgical History Hx Appendectomy: Yes Additional Surgical History: tonsil - Social History Smoking Status: Current Every Day Smoker Substance Use Type: Alcohol - Medications Home Medications: Home Medications Medication Instructions Recorded Confirmed Last Taken Type Acetaminophen [Tylenol] 325 mg PO Q4H PRN #15 capsule 03/23/18 Unknown Rx Amoxicillin/Potassium Clav 1 each PO BID #14 tablet 03/23/18 Unknown Rx [Augmentin 875-125 Tablet] Thiamine [Vitamin B-1] 100 mg PO QDAY #30 tablet 03/23/18 Unknown Rx Promethazine [Phenergan TAB] 25 mg PO Q6HR PRN #20 tab 05/26/19 Unknown Rx Dicyclomine [Bentyl] 20 mg PO QID PRN #20 tablet 06/16/21 Unknown Rx Ondansetron [Zofran ODT TAB] 4 mg PO Q8HR PRN #20 tab.rapdis 06/16/21 Unknown Rx Pantoprazole [Protonix TAB] 40 mg PO BID #60 tablet 06/16/21 Unknown Rx traMADoL [Ultram 50 MG tab] 50 mg PO Q6HR PRN #10 tablet 06/16/21 Unknown Rx ED Physical Exam - General Limitations: No Limitations General appearance: alert, in no apparent distress - Head Head exam: Present: atraumatic, normocephalic - Eye Eye exam: Present: normal appearance - ENT ENT exam: Present: mucous membranes moist - Respiratory Respiratory exam: Present: normal lung sounds bilaterally. Absent: respiratory distress, wheezes, rales, rhonchi, stridor, chest wall tenderness, accessory muscle use, decreased breath sounds, prolonged expiratory - Cardiovascular Cardiovascular Exam: Present: regular rate, normal rhythm, normal heart sounds. Absent: systolic murmur, diastolic murmur, rubs, gallop - GI/Abdominal GI/Abdominal exam: Present: soft, tenderness (epigastric), normal bowel sounds. Absent: distended, guarding, rebound, rigid - Back Exam Back exam: Present: CVA tenderness (L). Absent: CVA tenderness (R) - Neurological Exam Neurological exam: Present: alert, oriented X3 - Psychiatric Psychiatric exam: Present: normal affect, normal mood - Skin Skin exam: Present: warm, dry, intact ED Course Vital Signs 06/16/21 06/16/21 06/16/21 14:50 18:05 18:13 Temperature 97.4 F L 98.1 F Pulse Rate 66 81 Respiratory 18 18 Rate Blood Pressure 166/95 176/109 [Left] O2 Sat by Pulse 100 95 96 Oximetry 06/16/21 19:21 Temperature Pulse Rate 98 H Respiratory 14 Rate Blood Pressure 140/77 [Left] O2 Sat by Pulse 96 Oximetry ED Medical Decision Making - Lab Data Result diagrams: 06/16/21 15:18 06/16/21 15:18 Lab Results 06/16/21 06/16/21 06/16/21 Range/Units 15:18 15:18 18:15 WBC 12.4 H (4.5-11.0) K/mm3 RBC 4.79 (3.65-5.03) M/mm3 Hgb 14.3 (11.8-15.2) gm/dl Hct 43.9 (35.5-45.6) % MCV 92 (84-94) fl MCH 30 (28-32) pg MCHC 33 (32-34) % RDW 13.1 L (13.2-15.2) % Plt Count 252 (140-440) K/mm3 Lymph % (Auto) 10.1 L (13.4-35.0) % [place] % (Auto) 4.2 (0.0-7.3) % Eos % (Auto) 0.0 (0.0-4.3) % Baso % (Auto) 0.3 (0.0-1.8) % Lymph # (Auto) 1.3 (1.2-5.4) K/mm3 [place] # (Auto) 0.5 (0.0-0.8) K/mm3 Eos # (Auto) 0.0 (0.0-0.4) K/mm3 Baso # (Auto) 0.0 (0.0-0.1) K/mm3 Seg Neutrophils % 85.4 H (40.0-70.0) % Seg Neutrophils # 10.6 H (1.8-7.7) K/mm3 Sodium 143 (137-145) mmol/L Potassium 3.5 L (3.6-5.0) mmol/L Chloride 103.9 (98-107) mmol/L Carbon Dioxide 21 L (22-30) mmol/L Anion Gap 22 mmol/L BUN 14 (9-20) mg/dL Creatinine 0.8 (0.8-1.3) mg/dL Estimated GFR > 60 ml/min BUN/Creatinine Ratio 18 % Glucose 139 H (75-100) mg/dL Calcium 9.4 (8.4-10.2) mg/dL Total Bilirubin 0.40 (0.1-1.2) mg/dL AST 14 (5-40) units/L ALT 21 (7-56) units/L Alkaline Phosphatase 83 (35-129) units/L Total Protein 7.6 (6.3-8.2) g/dL Albumin 4.5 (3.9-5) g/dL Albumin/Globulin Ratio 1.5 % Lipase 10 L (13-60) units/L Urine Color Yellow (Yellow) Urine Turbidity Clear (Clear) Urine pH 8.0 H (5.0-7.0) Ur Specific [place] > 1.059 H (1.003-1.030) Urine Protein <15 mg/dl (Negative) mg/dL Urine Glucose (UA) Neg (Negative) mg/dL Urine Ketones Neg (Negative) mg/dL Urine Blood Neg (Negative) Urine Nitrite Neg (Negative) Urine Bilirubin Neg (Negative) Urine Urobilinogen < 2.0 (<2.0) mg/dL Ur Leukocyte Esterase Neg (Negative) Urine WBC (Auto) 1.0 (0.0-6.0) /HPF Urine RBC (Auto) < 1.0 (0.0-6.0) /HPF Urine Mucus Few /HPF Vital Signs 06/16/21 06/16/21 06/16/21 14:50 18:05 18:13 Temperature 97.4 F L 98.1 F Pulse Rate 66 81 Respiratory 18 18 Rate Blood Pressure 166/95 176/109 [Left] O2 Sat by Pulse 100 95 96 Oximetry 06/16/21 19:21 Temperature Pulse Rate 98 H Respiratory 14 Rate Blood Pressure 140/77 [Left] O2 Sat by Pulse 96 Oximetry - Radiology Data Radiology results: report reviewed Ordering Physician: RADHA SORIANO Date of Service: 06/16/21 Procedure(s): CT abdomen pelvis w con Accession Number(s): [id number] cc: RADHA SORIANO CT ABDOMEN AND PELVIS WITH CONTRAST INDICATION / CLINICAL INFORMATION: epigastric abd pain, left flank pain, n/v 100 ML OMNI 300 . TECHNIQUE: Axial CT images were obtained through the abdomen and pelvis after 100 cc of Omnipaque [address] scans at this location are performed using CT dose reduction for ALARA by means of automated exposure control. COMPARISON: 05/26/2019, 03/22/2018 FINDINGS: LOWER CHEST: No significant abnormality. AORTA / ARTERIES: No significant abnormality. IVC / VEINS: No significant abnormality. LYMPH NODES: No significant adenopathy. COLON: Diverticulosis without acute inflammation. Mild fatty infiltration of the colonic wall throughout its entire course. APPENDIX: Not visualized. STOMACH / SMALL BOWEL: No significant abnormality. PERITONEUM: No free fluid. No free air. No fluid collection. LIVER: No significant abnormality. GALLBLADDER: No significant abnormality. BILE DUCTS: No significant abnormality. PANCREAS: No significant abnormality. SPLEEN: No significant abnormality. ADRENALS: No significant abnormality. RIGHT KIDNEY / URETER: No significant abnormality. LEFT KIDNEY / URETER: There is a 7 mm stone within the left kidney. There is dilation of the collecting system, and osteophyte change compared to 03/22/2018. URINARY BLADDER: No significant abnormality. REPRODUCTIVE ORGANS: No significant abnormality. SKELETAL SYSTEM: No significant abnormality. ADDITIONAL FINDINGS: None. IMPRESSION: 1. There is diverticulosis without diverticulitis. 2. There is diffuse fatty infiltration of the colonic wall. This can be seen with inflammatory bowel disease such as celiac' s, correlate clinically. 3. Chronic dilation of the left collecting system with a redemonstrated and not simply change 7 mm stone. Signer Name: Kyle Le DO Signed: 06/16/2021 5:16 PM Workstation Name: [id number] Transcribed By: JAH Dictated By: KYLE LE DO Electronically Authenticated By: KYLE LE DO Signed Date/Time: 06/16/211715 DD/ 05 TD/TT: - Medical Decision Making Patient is a 41-year-old male presents emergency room with complaints of epigastric and left flank pain that began this morning when he woke up. He has associated nausea and vomiting and unable to tolerate p.o. intake. Patient states he has a past medical history of pancreatitis and nephrolithiasis. He states that yesterday he went to [place] [employer] and did drink alcohol. He denies any diarrhea, fever, hematochezia, melena, hematemesis, urinary symptoms. Patient had EGD performed at this hospital with severe esophagitis and gastritis. He never followed back up with GI. No allergies to medications. initial vitals with elevated blood pressure which improved upon repeat. Labs with mild leukocytosis. UA shows evidence of dehydration. ct abd pelvis with IV contrast 1. There is diverticulosis without diverticulitis. 2. There is diffuse fatty infiltration of the colonic wall. This can be seen with inflammatory bowel disease such as celiac' s, correlate clinically. 3. Chronic dilation of the left collecting system with a redemonstrated and not simply change 7 mm stone. Patient given medication while in the emergency department and on reexamination he is sleeping and resting comfortably. Patient states that he is feeling much better. Discussed all findings with patient and the importance of GI follow-up. Advised patient Please take medication as prescribed. Follow-up with a primary care doctor. Follow-up with a GI doctor. Please follow-up with your primary care doctor regarding the elevation your blood pressure during today's visit. Eat a low-sodium diet. Incorporate 30 to 60 minutes of daily exercise. Please stop drinking and smoking marijuana. Return to emergency room for any new or worsening symptoms. Critical care attestation.: If time is entered above; I have spent that time in minutes in the direct care of this critically ill patient, excluding procedure time. ED Disposition Clinical Impression: Elevated blood pressure reading Abdominal pain Qualifiers: Abdominal location: epigastric Qualified Code(s): R10.13 - Epigastric pain Nausea & vomiting Qualifiers: Vomiting type: unspecified Qualified Code(s): R11.2 - Nausea with vomiting, unspecified Disposition: 01 HOME / SELF CARE / HOMELESS Is pt being admited?: No Does the pt Need Aspirin: No Condition: Stable Instructions: Abdominal Pain, Adult, Nausea and Vomiting, Adult, [id number] Additional Instructions: Please take medication as prescribed. Follow-up with a primary care doctor. Follow-up with a GI doctor. Please follow-up with your primary care doctor regarding the elevation your blood pressure during today's visit. Eat a low- sodium diet. Incorporate 30 to 60 minutes of daily exercise. Please stop drinking and smoking marijuana. Return to emergency room for any new or worsening symptoms. Prescriptions: Dicyclomine [Bentyl] 20 mg PO QID PRN #20 tablet PRN Reason: abdominal pain Pantoprazole [Protonix TAB] 40 mg PO BID #60 tablet traMADoL [Ultram 50 MG tab] 50 mg PO Q6HR PRN #10 tablet PRN Reason: Pain , Severe (7-10) Ondansetron [Zofran ODT TAB] 4 mg PO Q8HR PRN #20 tab.rapdis PRN Reason: Vomiting Referrals: PRIMARY CARE, [Primary Care Provider] - 3-5 Days [facility] [Provider Group] - 3-5 Days Time of Disposition: 18:57 Print Language: SWEDISH
[2021-06-16 16:08] LABS: Alanine Aminotransferase 21 units/L (7-56); Albumin 4.5 g/dL (3.9-5); BUN/Creatinine Ratio 18; Blood Urea Nitrogen 14 mg/dL (9-20); Calcium 9.4 mg/dL (8.4-10.2); Hemolysis Index 10
[2021-06-16] MEDS ORDERED: HYDROmorphone 1 MG/1 ML INJ IV ONE (17:13)
[2021-06-16] MEDS ORDERED: diphenhydrAMINE 50 MG/ML VIAL IV ONE (17:13)
[2021-06-16] MEDS ORDERED: METOCLOPRAMIDE 10 MG/2 ML INJ IV ONE (17:13)
--- NOTE | 2021-06-16 17:21 | Cat Scan Report ---
CT ABDOMEN AND PELVIS WITH CONTRAST INDICATION / CLINICAL INFORMATION: epigastric abd pain, left flank pain, n/v 100 ML OMNI 300 . TECHNIQUE: Axial CT images were obtained through the abdomen and pelvis after 100 cc of Omnipaque [address] scans at this location are performed using CT dose reduction for ALARA by means of automated exposure control. COMPARISON: 05/26/2019, 03/22/2018 FINDINGS: LOWER CHEST: No significant abnormality. AORTA / ARTERIES: No significant abnormality. IVC / VEINS: No significant abnormality. LYMPH NODES: No significant adenopathy. COLON: Diverticulosis without acute inflammation. Mild fatty infiltration of the colonic wall through out its entire course. APPENDIX: Not visualized. STOMACH / SMALL BOWEL: No significant abnormality. PERITONEUM: No free fluid. No free air. No fluid collection. LIVER: No significant abnormality. GALLBLADDER: No significant abnormality. BILE DUCTS: No significant abnormality. PANCREAS: No significant abnormality. SPLEEN: No significant abnormality. ADRENALS: No significant abnormality. RIGHT KIDNEY / URETER: No significant abnormality. LEFT KIDNEY / URETER: There is a 7 mm stone within the left kidney. There is dilation of the collecti ng system, and osteophyte change compared to 03/22/2018. URINARY BLADDER: No significant abnormality. REPRODUCTIVE ORGANS: No significant abnormality. SKELETAL SYSTEM: No significant abnormality. ADDITIONAL FINDINGS: None. IMPRESSION: 1. There is diverticulosis without diverticulitis. 2. There is diffuse fatty infiltration of the colonic wall. This can be seen with inflammatory bowel disease such as celiac' s, correlate clinically. 3. Chronic dilation of the left collecting system with a redemonstrated and not simply change [address] one. Signer Name: Kyle Le DO Signed: 06/16/2021 5:16 PM Workstation Name: [id number]
[2021-06-16] MEDS ORDERED: SODIUM CHLORIDE 0.9% 1000 ML 1,000 ML ONE (17:57)
[2021-06-16 18:40] LABS: Bilirubin,Urine NEG (Negative); Blood,Urine NEG (Negative); Color,Urine Yellow (Yellow); Mucus,Urine FEW /HPF; Protein,Urine <15 mg/dL mg/dL (Negative); RBC,Urine < 1.0 /HPF (0.0-6.0); Urobilinogen,Urine < 2.0 mg/dL (<2.0)
[2021-06-16 19:22] VITALS: BP 140/77
== END 2021-06-16 19:43 | disposition home or self-care (01) ==
LOC: ED 13:37
DX: R10.13 Epigastric pain (principal); F17.200 Nicotine dependence, unspecified, uncomplicated; R11.2 Nausea with vomiting, unspecified; R03.0 Elevated blood-pressure reading, without diagnosis of hypertension
CPT/HCPCS: 36415; 74177; 80053; 81001; 83690; 85025; 96361; 96374; 96375; 99284; C9113; J1170; J1200; J2270; J2405; J2765; J7030; Q9967; Q0162